=== PATIENT | female | born 1995 | race African-American/Black ===

== ENCOUNTER 2025-03-02 10:49 | Inpatient (IN) | payer MEDICAID, OTHER ==
[~2025-03-02] VITALS: Ht 160 cm; Wt 79.4 kg
[2025-03-02 11:06] VITALS: O2SAT 98
[2025-03-02] MEDS: SODIUM CHLORIDE 0.9% 1,000 ML IV ONE (11:24)
[2025-03-02] MEDS: ACETAMINOPHEN 1000MG/100ML 100 ML IV ONE (11:45)
[2025-03-02 11:48] LABS: BASOPHILS % 0.3 % (0.0-2.0); EOSINOPHILS % 0.9 % (0.0-5.0); HEMATOCRIT. 32.3 % (36.0-48.0); HEMOGLOBIN. 10.9 g/dL (12.0-16.0); LYMPHOCYTES % 17.8 % (20.0-50.0); MEAN PLATELET VOLUME 7.5 fl (7.4-10.4); MONOCYTES % 4.8 % (2.0-8.0); NEUTROPHILS % 76.2 % (40.0-76.0); PLATELET 335 x1000/uL (130-400); RED BLOOD CELL COUNT 3.50 mill/uL (4.2-5.4); RED CELL DISTRIBUTION WIDTH 13.2 % (11.6-14.6)
[2025-03-02 11:59] LABS: HCG SCREEN POSITIVE
[2025-03-02 12:00] LABS: CREATININE 0.7 mg/dL (0.6-1.0); UREA NITROGEN BLOOD 6 mg/dL (9-23)
[2025-03-02 12:02] LABS: ASPARTATE AMINOTRANSFERASE 47 IU/L (<34); BILIRUBIN DIRECT < 0.1 mg/dL (<=3.0)
[2025-03-02 12:03] LABS: BILIRUBIN TOTAL 0.3 mg/dL (0.1-1.0); PROTEIN TOTAL 6.2 g/dL (6.0-8.3)
[2025-03-02] MEDS ORDERED: IOHEXOL-350 100 ML BOTTLE ONE (14:54)
[2025-03-02] MEDS ORDERED: LABETALOL 5MG/ML 4ML INJ IV ONE (15:45)
[2025-03-02 16:00] VITALS: BP 127/98; PULSE 77; RESP 18; TEMP 35.9; O2SAT 100
[2025-03-02 16:45] VITALS: BP 127/78; PULSE 77; RESP 19; TEMP 35.9732
[2025-03-02] MEDS ORDERED: MAGNESIUM/ALUMINUM HYDROXIDE/SIMETHICONE 30ML UDC PO PRN (17:00)
[2025-03-02] MEDS ORDERED: ACETAMINOPHEN 325MG TABLET PO PRN ×2 (17:00)
[2025-03-02] MEDS ORDERED: GUAIFENESIN 200MG/10ML SUGAR FREE UDC PO PRN (17:00)
[2025-03-02] MEDS ORDERED: CLONIDINE 0.1MG TABLET PO PRN (17:00)
[2025-03-02] MEDS ORDERED: IPRATROPIUM/ALBUTEROL 0.5-3(2.5)MG/3ML NEB HHN PRN (17:00)
[2025-03-02] MEDS ORDERED: ONDANSETRON HCL 4MG/2ML INJ IV PRN (17:00)
[2025-03-02] MEDS ORDERED: DOCUSATE SODIUM 100MG CAPSULE PO PRN (17:00)
[2025-03-02] MEDS: PANTOPRAZOLE SODIUM 40 MG/VIAL IV SCH (18:32)
[2025-03-02] MEDS: KETOROLAC 15MG/ML VIAL IV PRN (18:36)
[2025-03-02 20:00] VITALS: BP 116/72; PULSE 91; RESP 20; TEMP 36.3; O2SAT 97
[2025-03-02 22:25] LABS: CREATININE 0.6 mg/dL (0.6-1.0); UREA NITROGEN BLOOD < 5 mg/dL (9-23)
[2025-03-02 22:27] LABS: LACTATE DEHYDROGENASE 249 IU/L (120-246)
[2025-03-02 22:29] LABS: FOLIC ACID (FOLATE) SERUM 13.60 ng/mL (>5.38); VITAMIN B12 SERUM 160 pg/mL (211-911)
[2025-03-02] MEDS: LACTULOSE 20G/30ML UDC PO SCH (22:31)
[2025-03-02] MEDS: CEPHALEXIN 250MG CAPSULE PO SCH (22:31)
[2025-03-03] VITALS: BP 112/70; PULSE 95; RESP 20; TEMP 36.2; O2SAT 96
[2025-03-03 08:00] VITALS: BP 129/90; PULSE 73; RESP 17; TEMP 36.2; O2SAT 100
[2025-03-03 12:00] VITALS: BP 128/89; PULSE 74; RESP 16; TEMP 36.7; O2SAT 100
[2025-03-03 13:50] LABS: BASOPHILS % 0.7 % (0.0-2.0); EOSINOPHILS % 2.0 % (0.0-5.0); HEMATOCRIT. 35.1 % (36.0-48.0); HEMOGLOBIN. 11.5 g/dL (12.0-16.0); LYMPHOCYTES % 20.6 % (20.0-50.0); MEAN PLATELET VOLUME 8.0 fl (7.4-10.4); MONOCYTES % 3.1 % (2.0-8.0); NEUTROPHILS % 73.6 % (40.0-76.0); PLATELET 339 x1000/uL (130-400); RED BLOOD CELL COUNT 3.74 mill/uL (4.2-5.4); RED CELL DISTRIBUTION WIDTH 13.2 % (11.6-14.6)
[2025-03-03 14:33] LABS: GLUCOSE URINE NEGATIVE (NEGATIVE); KETONES URINE NEGATIVE (NEGATIVE); LEUKOCYTE ESTERASE URINE 2+ (NEGATIVE); NITRITE URINE NEGATIVE (NEGATIVE); OCCULT BLOOD URINE TRACE (NEGATIVE); PH URINE 7.5 (4.5-8.0); PROTEIN URINE NEGATIVE (NEGATIVE); SPECIFIC GRAVITY URINE 1.011 (1.005-1.030); UROBILINOGEN URINE 1.0 E.U./dL (0.2-1.0)
[2025-03-03 15:20] LABS: *AMPHETAMINES SCREEN URINE NEGATIVE (NEGATIVE); *BARBITURATES SCREEN URINE NEGATIVE (NEGATIVE); *BENZODIAZEPINES SCREEN URINE NEGATIVE (NEGATIVE); *COCAINE SCREEN URINE NEGATIVE (NEGATIVE); METHADONE URINE SCREEN NEGATIVE (NEGATIVE)
[2025-03-03 15:21] LABS: CANNABINOID URINE SCREEN PRESUMPTIVE POSITIVE (NEGATIVE); ECSTASY MDMA SCREEN URINE NEGATIVE (NEGATIVE); OPIATES URINE SCREEN NEGATIVE (NEGATIVE); PHENCYCLIDINE URINE SCREEN NEGATIVE (NEGATIVE)
[2025-03-03 15:21] LABS: COLOR URINE STRAW (YELLOW)
[2025-03-03 15:23] LABS: CLARITY URINE SL HAZY (CLEAR)
[2025-03-03 15:24] LABS: BACTERIA URINE TRACE; RBC URINE NONE SEEN /hpf (0-2); SQUAMOUS EPITHELIAL CELL URINE 1+ /lpf (RARE/1+)
[2025-03-03 17:41] VITALS: BP 101/74; PULSE 80; RESP 17; TEMP 98.2
[2025-03-03] MEDS ORDERED: IBUP-2028 MT ×2 (17:55→22:06)
[2025-03-03] MEDS ORDERED: CEPH250C2 PO (17:55)
[2025-03-03] MEDS ORDERED: PANT40TA51 MT ×2 (17:55→22:06)
[2025-03-03] MEDS ORDERED: CEPH500C2 MT (22:06)
[2025-03-03] MEDS ORDERED: DOCU-422 MT (22:06)
== END 2025-03-03 18:20 | disposition home or self-care (01) | DRG 561 ==
LOC: ER 10:49 → 6EST 13:30 → EDBEDREQ 13:46 → EDBEDREQTM 13:46 → 6EST 03-03 16:54
PROVIDERS: ADMIT Internal Medicine; ATTEND Internal Medicine
DX: O99.63 Diseases of the digestive system complicating the puerperium (principal); Z59.00 Homelessness unspecified; K29.70 Gastritis, unspecified, without bleeding; O90.81 Anemia of the puerperium; O90.89 Other complications of the puerperium, not elsewhere classified; T81.82XA Emphysema (subcutaneous) resulting from a procedure, initial encounter; Y83.9 Surgical procedure, unspecified as the cause of abnormal reaction of the patient, or of later complication, without mention of misadventure at the time of the procedure; Z79.899 Other long term (current) drug therapy; Z98.891 History of uterine scar from previous surgery; Y92.89 Other specified places as the place of occurrence of the external cause
CPT/HCPCS: 36415; 74174; 74176; 80048; 80076; 80305; 81003; 82607; 82728; 82746; 83540; 83550; 83605; 83615; 84703; 85025; 94640; 96365; 96375; 99285; A4606; J1885; J2470; J3490; J7030; Q9967; J0131